=== PATIENT | male | born 1970 | race Caucasian/White ===

== ENCOUNTER 2021-05-15 16:23 | Emergency (ER) | payer OTHER, BC ==
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
[2021-05-15] MEDS ORDERED: Acetaminophen 500 MG Tab PO ONE (16:54)
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
== END 2021-05-15 18:10 | disposition home or self-care (01) ==
LOC: KA.ED 16:23
DX: S46.212A Strain of muscle, fascia and tendon of other parts of biceps, left arm, initial encounter (principal); S16.1XXA Strain of muscle, fascia and tendon at neck level, initial encounter; S20.311A Abrasion of right front wall of thorax, initial encounter; Z88.5 Allergy status to narcotic agent; Z79.899 Other long term (current) drug therapy; V83.5XXA Driver of special industrial vehicle injured in nontraffic accident, initial encounter; Y92.410 Unspecified street and highway as the place of occurrence of the external cause
CPT/HCPCS: 71046; 72170; 73030; 73130; 99284; A9270